=== PATIENT | female | born 1960 | race Caucasian/White ===

== ENCOUNTER 2021-09-30 17:44 | Emergency (ER) | payer OTHER, SELFPAY ==
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
[2021-09-30 17:54] VITALS: BP 140/82; PULSE 77; O2SAT 98
[2021-09-30 18:03] VITALS: BP 180/70; PULSE 73; RESP 15; TEMP 36.1; O2SAT 97; BMI 32.8
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
[2021-09-30 18:48] VITALS: BP 170/90
--- NOTE | 2021-09-30 18:57 | PC.NURSE ---
pt stating her left sided chest feels weird. Pt states it is painful. denies wanting pain medication. Pt aware she is getting a scan.
[2021-09-30 21:22] VITALS: BP 164/72; PULSE 71; RESP 18; TEMP 36.6; O2SAT 98
--- NOTE | 2021-09-30 21:22 | PC.NURSE ---
Pt alert and oriented x4, calm and cooperative. Pt denies pain. Pt states she is ready for dc. No IV in place. Vitals stable. Pt educated on results. P ambulated out of ER without issues.
== END 2021-09-30 21:28 | disposition home or self-care (01) ==
PROVIDERS: Emergency Provider Emergency Medicine; PCP Internal Medicine
DX: S16.1XXA Strain of muscle, fascia and tendon at neck level, initial encounter (principal); V43.52XA Car driver injured in collision with other type car in traffic accident, initial encounter; R91.8 Other nonspecific abnormal finding of lung field; N63.10 Unspecified lump in the right breast, unspecified quadrant; Y93.89 Activity, other specified; Y92.414 Local residential or business street as the place of occurrence of the external cause; Y99.9 Unspecified external cause status
CPT/HCPCS: 70450; 71250; 72125; 73030; 99284

== ENCOUNTER → 2022-05-29 12:52 | Outpatient (BNVA) | payer SELFPAY | PROVIDERS: PCP Internal Medicine; Visit Provider Psychiatry & Neurology Neurology | DX: M54.2 Cervicalgia (principal); R51.9 Headache, unspecified; G89.29 Other chronic pain | CPT/HCPCS: 99202 ==

== ENCOUNTER → 2022-06-26 13:48 | Outpatient (BNVA) | payer SELFPAY | PROVIDERS: PCP Internal Medicine; Visit Provider Nurse Practitioner Family | DX: R51.9 Headache, unspecified (principal); M54.2 Cervicalgia; G89.29 Other chronic pain | CPT/HCPCS: 99212 ==